=== PATIENT | male | born 1935 | race Two or more races ===

== ENCOUNTER 2019-02-13 02:52 | Inpatient (IN) | payer MEDICARE, OTHER ==
[~2019-02-13] VITALS: Ht 177.8 cm; Wt 79.3 kg
[2019-02-13 04:19] LABS: Basophils # (auto) 0 uL; Basophils % (auto) 0.3 % (0.0-2.0); Eosinophils # (auto) 0 uL; Eosinophils % (auto) 0.1 % (0.0-7.0); Hematocrit 40.8 % (41.0-53.0); Hemoglobin 13.6 g/dL (13.5-17.5); Lymphocytes # (auto) 0.8 uL; Lymphocytes % (auto) 6.8 % (10.0-50.0); Mean Corpuscular Hemoglobin 29.1 pg (28.0-32.0); Mean Corpuscular Hgb Conc. 33.3 g/dL (32.0-36.0); Mean Corpuscular Volume 87.4 fL (80.0-100.0); Monocytes # (auto) 0.8 uL; Monocytes % (auto) 6.7 % (0.0-12.0); Neutrophils # (auto) 10.7 uL; Neutrophils % (auto) 86.1 % (37.0-80.0); Nucleated Red Blood Cells % 0.1 %; Platelet Count (auto) 150 10^3/uL (140-450); Red Blood Cells 4.67 10^6/uL (4.5-5.90); Red Cell Distribution Width 14.1 % (11.8-14.3); White Blood Cell 12.4 10^3/uL (4.4-10.8)
[2019-02-13 04:34] LABS: Alanine Aminotransferase 49 U/L (16-61); Albumin 3.3 g/dL (3.4-5.0); Anion Gap 12 (5-15); Blood Urea Nitrogen 62 mg/dL (7-18); Calcium 9.1 mg/dL (8.5-10.1); Carbon Dioxide 21 mmol/L (21-32); Chloride 100 mmol/L (98-107); Glucose 214 mg/dL (74-106); Magnesium 2.5 mg/dL (1.6-2.6); Sodium 133 mmol/L (136-145)
[2019-02-13 04:39] LABS: Alkaline Phosphatase 87 U/L (45-117); Aspartate Aminotransferase 45 U/L (15-37); BUN/Creatinine Ratio 17.5; GFR African American 21 mL/min; GFR Non-African American 18 mL/min; Total Protein 7.1 g/dL (6.4-8.2)
[2019-02-13 05:13] LABS: INR 1.2 (0.9-1.15); Partial Thromboplastin Time 30.5 sec (23.64-32.05)
[2019-02-13] MEDS ORDERED: InsuLIN REG 1unit/0.01ml Soln (100units/ml) IV ONE ×2 (05:15→08:30)
[2019-02-13] MEDS ORDERED: SODIUM BICARBONATE 8.4 % INJ 50ML VIAL IV ONE ×2 (05:15→08:30)
[2019-02-13] MEDS ORDERED: CALCIUM CHL 100MG/ML 1,000 MG in D5W 5% 100 ML IV ONE (05:15)
[2019-02-13] MEDS ORDERED: DEXTROSE (50%) 50ML SYRG IV ONE ×2 (05:15→08:30)
[2019-02-13] MEDS ORDERED: CALCIUM CHLOR(10%) 100MG/ML 10ML SYRINGE IV ONE (05:34)
[2019-02-13] MEDS ORDERED: FUROSEMIDE 100 MG/10ML VIAL IV ONE (06:00)
[2019-02-13] MEDS ORDERED: ACETAMINOPHEN 500 MG TAB PO PRN ×2 (07:15)
[2019-02-13] MEDS ORDERED: MORPHINE SULF INJ 2 MG/ML SYRINGE 1ML IV PRN (07:15)
[2019-02-13] MEDS ORDERED: ONDANSETRON HCL 4 MG/2 ML VIAL IV PRN ×2 (07:15)
[2019-02-13] MEDS ORDERED: DEXTROSE (50%) 50ML SYRG IV PRN (07:15)
[2019-02-13] MEDS ORDERED: TEMAZEPAM 15 MG CAP PO PRN (07:15)
[2019-02-13] MEDS ORDERED: HYDROcodone-ACET 5/325MG TAB PO PRN (07:15)
[2019-02-13] MEDS: DOXYCYCLINE 100MG/250ML 250 ML IV SCH ×2 (07:49→19:11)
[2019-02-13 08:04] LABS: BUN/Creatinine Ratio 17.2; Calcium 10.2 mg/dL (8.5-10.1)
[2019-02-13] MEDS ORDERED: ALBUTEROL SULF 2.5 MG/0.5ML(0.5%) NEB SOLN NEB ONE (08:30)
[2019-02-13] MEDS ORDERED: SODIUM ZIRCONIUM CYCL 10 GM PAK PO ONE (09:30)
[2019-02-13] MEDS: ENOXAPARIN SOD 30 MG/0.3 ML SYRINGE SC SCH (10:20)
[2019-02-13] MEDS: PANTOPRAZOLE 40 MG TAB PO SCH (10:27)
[2019-02-13 10:33] LABS: Urine Bacteria NONE SEEN /hpf (None Seen); Urine Blood 2+ /uL (Negative); Urine Specific Gravity 1.012 (1.001-1.035); Urine WBC 2 /hpf (0 - 3)
[2019-02-13 11:00] LABS: Protein, Urine 14.4 mg/dL (0.0-11.9)
[2019-02-13] MEDS: InsuLIN REG 1unit/0.01ml Soln (100units/ml) SC SCH ×2 (12:03→16:40)
[2019-02-13] MEDS: ACCU-CHEK COMFORT CURVE STRIP VI SCH ×3 (12:04→22:04)
[2019-02-13 16:05] LABS: BUN/Creatinine Ratio 19.1; Calcium 9.7 mg/dL (8.5-10.1); Potassium 4.9 mmol/L (3.5-5.1)
[2019-02-13 17:53] LABS: BUN/Creatinine Ratio 16.2; Calcium 9.7 mg/dL (8.5-10.1)
[2019-02-13 17:59] LABS: Potassium 5.7 mmol/L (3.5-5.1)
[2019-02-13] MEDS ORDERED: FUROSEMIDE 40 MG/4 ML VIAL IV SCH (18:00)
--- NOTE | 2019-02-13 18:00 | NUR ---
WOUND CARE NOTE: IN TO SEE PATIENT IN ER BED 17 PER WOUND CONSULT REQUEST. PATIENT RECENTLY ADMITTED TO [facility] WITH DIAGNOSIS OF SYNCOPE. PATIENT HAS CURRENT DANIEL SCORE OF 13. PER PATIENT FAMILY, PATIENT HAS BEEN BEDBOUND OVER THE LAST 3 DAYS OR SO. HE IS ABLE TO ASSIST WITH HIS TURNING/REPOSITIONING. FAMILY STATES THAT PATIENT HAS DEVELOPED A "FUNGAL RASH" OVER THE LAST YEAR OR SO. HIS PCP HAS PRESCRIBED A "CREAM" FOR PATIENT'S REDDENED SKIN. THERE HAS BEEN NO IMPROVEMENT IN HIS RASH. HE HAS URTICARIA IN THE RASH AREAS OF HIS ABDOMEN, GROIN, SCROTUM, BILATERAL BUTTOCKS, THIGHS. NEW WOUND PHOTOS TAKEN AT THIS TIME FOR REFERENCE. NO OTHER WOUNDS NOTED. RECOMMEND: ANTIFUNGAL CLEAR TO FUNGAL RASH AREAS, FREQUENT TURN SCHEDULE Q 2 HOURS, PRN CONDITION PERMITS, WITH PRESSURE REDISTRIBUTION USING PILLOWS/WEDGES, BID/PRN APPLICATION WITH ANTIFUNGAL CLEAR TO ALL RED RASH AREAS OF ABD, GROIN, SACRUM, BUTTOCKS, THIGHS, SCROTUM, SKIN/WOUND CARE PLAN, CONTINUED MONITORING BY WOUND CARE TEAM. ADVISED PATIENT AND FAMILY THAT HE SHOULD CONSULT WITH A COLLECTIONS MANAGER FOR A DIAGNOSIS OF HIS FUNGAL RASH AN OUTPATIENT. FAMILY VERBALIZES UNDERSTANDING. Addendum: 02/13/19 at 1930 by Grace Anderson RN Amended: Links added.
[2019-02-13] MEDS: TAMSULOSIN HYDROCHLORIDE 0.4 MG CAP PO SCH (18:03)
--- NOTE | 2019-02-13 18:48 | NUR ---
MS admit from [facility] admitted to tele/MS after SBAR received. Patient oriented to ROXANE GALINDO, primary RN, unit, room, bed, and unit policies regarding patient care and visiting hours. Patient weighed by bedscale and encouraged to call if they need something. All questions and concerns addressed, patient verbalized understanding.
[2019-02-13 19:01] VITALS: BP 105/67
--- NOTE | 2019-02-13 19:35 | NUR ---
Opening Shift Note Assumed care of patient, awake and alert x4, Maltese speaker. No S/S of distress/SOB or pain. Instructed on POC and to call for assistance PRN, will continue to monitor for changes Q1hr and PRN. Family at bedside
[2019-02-13 19:45] VITALS: BP 105/67
[2019-02-13] MEDS ORDERED: LORazepam 2MG/ML-1ML VIAL IV PRN (20:30)
--- NOTE | 2019-02-13 21:20 | NUR ---
Family Stay Received approval for daughter to stay for tonight only. Family is from [place] advised to look for hotels for tomorrow. Pt agreed and verbalized understanding.
[2019-02-13] MEDS ORDERED: InsuLIN REG 1unit/0.01ml Soln (100units/ml) SC SCH (22:00)
[2019-02-13] MEDS ORDERED: ATORVASTATIN 20 MG TAB PO SCH (22:00)
[2019-02-13 22:08] VITALS: BP 91/58
[2019-02-13 22:23] VITALS: BP 114/66
--- NOTE | 2019-02-14 02:56 | NUR ---
Rounds Patient sleeping. No S/S of distress/SOB on 2L NC or pain. Will continue to monitor changes q1hr and PRN. Daughter at bedside
[2019-02-14 05:20] VITALS: BP 100/57
[2019-02-14] MEDS: ACCU-CHEK COMFORT CURVE STRIP VI SCH ×3 (06:28→17:54)
[2019-02-14] MEDS: DOXYCYCLINE 100MG/250ML 250 ML IV SCH ×2 (06:28→17:54)
--- NOTE | 2019-02-14 06:30 | NUR ---
Rounds Patient awake and alert x4. No S/S of distress/SOB on 1L NC, denies pain. Will continue to monitor changes q1hr and PRN. Daughter sleeping at bedside. Mendez draining clear yellow urine, bag below bladder. Bed alarm on
[2019-02-14 06:49] LABS: Basophils # (auto) 0 uL; Basophils % (auto) 0.3 % (0.0-2.0); Eosinophils # (auto) 0.2 uL; Eosinophils % (auto) 2.6 % (0.0-7.0); Hematocrit 36.3 % (41.0-53.0); Hemoglobin 12.3 g/dL (13.5-17.5); Lymphocytes # (auto) 1.1 uL; Lymphocytes % (auto) 13.1 % (10.0-50.0); Mean Corpuscular Hemoglobin 29.4 pg (28.0-32.0); Mean Corpuscular Hgb Conc. 33.9 g/dL (32.0-36.0); Mean Corpuscular Volume 86.7 fL (80.0-100.0); Monocytes # (auto) 0.6 uL; Neutrophils # (auto) 6.2 uL; Platelet Count (auto) 126 10^3/uL (140-450); Red Blood Cells 4.19 10^6/uL (4.5-5.90); White Blood Cell 8.2 10^3/uL (4.4-10.8)
[2019-02-14] MEDS: InsuLIN REG 1unit/0.01ml Soln (100units/ml) SC SCH ×3 (07:00→17:00)
--- NOTE | 2019-02-14 07:34 | NUR ---
Endorsed care to Shawna NGUYEN
--- NOTE | 2019-02-14 07:35 | NUR ---
Opening Shift Note Assumed care of patient, awake and alert x4, sitting up in bed, with family at bedside to translate. No S/S of distress/SOB or no pain noted or reported. Respirations are even and unlabored on RA. Updated on POC and instructed to call for assistance as needed, pt. verbalized understanding. Bed locked in lowest position, side rails up x2, call light within reach. Will continue to monitor for changes Q1hr and PRN.
[2019-02-14 08:04] LABS: BUN/Creatinine Ratio 25.1; Calcium 8.9 mg/dL (8.5-10.1); Potassium 4.3 mmol/L (3.5-5.1)
[2019-02-14 08:45] VITALS: BP 96/57
--- NOTE | 2019-02-14 09:20 | NUR ---
IV removal Right forearm and right wrist IV DC'd with clean sterile technique, catheter fully intact. Pressure dressing applied to site. Patient tolerated well. NOTE: [pt. stated it was extremely painful and were leaking.]
--- NOTE | 2019-02-14 09:25 | NUR ---
IV insertion IV access obtained, via clean sterile technique by inserting 22 gauge catheter at right forearm after 1 attempt. IV secured properly. No trauma to site. Patient tolerated well.
[2019-02-14] MEDS: PANTOPRAZOLE 40 MG TAB PO SCH (09:35)
[2019-02-14] MEDS: ENOXAPARIN SOD 30 MG/0.3 ML SYRINGE SC SCH (09:36)
[2019-02-14 09:48] LABS: Cholesterol 77 mg/dL (< 200)
[2019-02-14 09:51] LABS: HDL Cholesterol 36 mg/dL (40-59); LDL Cholesterol 41 mg/dL (< 100); Triglycerides 64 mg/dL (< 150)
[2019-02-14] MEDS ORDERED: FUROSEMIDE 40 MG/4 ML VIAL IV SCH ×2 (10:00)
[2019-02-14] MEDS ORDERED: ASPirin 81 mg TAB PO SCH (10:00)
[2019-02-14 12:30] VITALS: BP 91/54
--- NOTE | 2019-02-14 14:55 | NUR ---
EEG COMPLETED AT BEDSIDE. WENDY JOY.
[2019-02-14 17:00] VITALS: BP 97/56
[2019-02-14] MEDS: TAMSULOSIN HYDROCHLORIDE 0.4 MG CAP PO SCH (17:54)
--- NOTE | 2019-02-14 17:59 | NUR ---
Spoke with Dr. Stanton per family they want to take pt[facility] out there, okay to discharge home if pt. is stable.
[2019-02-14 18:22] VITALS: BP 97/56
--- NOTE | 2019-02-14 18:53 | NUR ---
WILL ENDORSE CARE TO PRESSER COTTON GINNING, RN.
--- NOTE | 2019-02-14 19:30 | NUR ---
Received report from Shawna NGUYEN. Patient is going home. Skin is inact. IV removed to RUA. Pérez
--- NOTE | 2019-02-14 20:30 | NUR ---
note 1 of 2. Discharge instructions given to patient and family. Andrea going home with patient to [place]. No distress noted
[2019-02-14 20:52] VITALS: BP 96/55
== END 2019-02-14 21:15 | disposition home or self-care (01) | DRG 64 ==
LOC: EDBD 02:52 → ER 02:52 → TELE 02:53 → TELE-EAST 21:51
PROVIDERS: ADMIT Nurse Practitioner Family; ATTEND Internal Medicine
DX: I63.9 Cerebral infarction, unspecified (principal); I50.43 Acute on chronic combined systolic (congestive) and diastolic (congestive) heart failure; N17.9 Acute kidney failure, unspecified; I13.0 Hypertensive heart and chronic kidney disease with heart failure and stage 1 through stage 4 chronic kidney disease, or unspecified chronic kidney disease; E44.0 Moderate protein-calorie malnutrition; N18.4 Chronic kidney disease, stage 4 (severe); N13.6 Pyonephrosis; R55 Syncope and collapse; E11.22 Type 2 diabetes mellitus with diabetic chronic kidney disease; E87.5 Hyperkalemia; N40.1 Benign prostatic hyperplasia with lower urinary tract symptoms; R60.9 Edema, unspecified; I07.1 Rheumatic tricuspid insufficiency; I25.10 Atherosclerotic heart disease of native coronary artery without angina pectoris; I27.20 Pulmonary hypertension, unspecified; N28.1 Cyst of kidney, acquired; N32.89 Other specified disorders of bladder; N40.0 Benign prostatic hyperplasia without lower urinary tract symptoms; Z79.82 Long term (current) use of aspirin; Z79.899 Other long term (current) drug therapy; Z86.73 Personal history of transient ischemic attack (TIA), and cerebral infarction without residual deficits; Z68.25 Body mass index [BMI] 25.0-25.9, adult; Z80.42 Family history of malignant neoplasm of prostate; Z83.3 Family history of diabetes mellitus; Z79.84 Long term (current) use of oral hypoglycemic drugs
CPT/HCPCS: 36415; 36600; 51702; 70450; 70551; 71045; 76775; 80048; 80053; 80061; 80074; 81001; 82570; 82805; 82962; 83036; 83735; 83880; 84154; 84156; 84443; 84484; 85025; 85610; 85730; 86038; 86160; 87040; 93005; 93306; 93886; 94640; 95819; 96365; 96375; 97163; 99291; G0378; J1815; J3490; J7060